=== PATIENT | female | born 1980 | race Caucasian/White ===

== ENCOUNTER 2018-02-25 06:53 | Day surgery (SDC) | payer MEDICAID ==
[2018-02-18 14:00] LABS: BASOPHILS # (AUTO) 0.1 X10'3 (0-0.2); BASOPHILS % (AUTO) 0.3 % (0-1); EOSINOPHILS # (AUTO) 0.2 X10'3 (0-0.9); EOSINOPHILS % (AUTO) 1.3 % (0-6); LYMPHOCYTES # (AUTO) 2.3 X10'3 (1.1-4.8); LYMPHOCYTES % (AUTO) 14.1 % (21-51); MEAN CORPUSCULAR HEMOGLOBIN 34.4 PG (27.0-31.0); MEAN CORPUSCULAR HGB CONC 33.7 % (33.0-36.5); MEAN CORPUSCULAR VOLUME 102.1 FL (78-98); MEAN PLATELET VOLUME 7.7 FL (7.4-10.4); MONOCYTES # (AUTO) 0.7 X10'3 (0-0.9); MONOCYTES % (AUTO) 4.3 % (2-12); PRE OP HEMATOCRIT 39.8 % (35.0-45.0); PRE OP HEMOGLOBIN 13.4 g/dL (12.0-16.0); PRE OP PLATELET COUNT 289 X10'3 (140-440); RED CELL DISTRIBUTION WIDTH 13.2 % (11.5-14.5)
[2018-02-18 14:18] LABS: ALBUMIN 3.7 G/DL (3.4-5.0); ALKALINE PHOSPHATASE 58 IU/L (46-116); BLOOD UREA NITROGEN 12 MG/DL (7-18); BUN/CREATININE RATIO 14.3 (6.6-38.0); CALCIUM 8.4 MG/DL (8.5-10.1); CHLORIDE 105 MMOL/L (99-107); CREATININE 0.84 MG/DL (0.40-0.90); PRE OP ALT 18 U/L (30-65); PRE OP ANION GAP 8 (8-16); PRE OP AST 12 U/L (10-37); PRE OP BILIRUB, TOTAL 0.3 MG/DL (0.0-1.0); PRE OP GLUCOSE 95 MG/DL (70-104); PRE OP POTASSIUM 3.4 MMOL/L (3.4-5.1); PRE OP SODIUM 143 MMOL/L (135-145); TOTAL CARBON DIOXIDE 29.7 MMOL/L (24-32); TOTAL PROTEIN 7.3 G/DL (6.4-8.2); eGFR 77 ML/MIN
[2018-02-18 14:48] LABS: HCG SERUM QL NEGATIVE
[~2018-02-25] VITALS: Ht 170.2 cm; Wt 68.9 kg
[~2018-02-25 06:53] MED LIST: BUPIVAcaine/PF 2.5mg/ml (0.25%) 10ml vial ONE; METH2.5T55 PO; albuterol 2.5 MG/3 ML nebule NEB ONE; cefazolin/dext.iso 2gm/100 ML IV ONE; diazepam 5mg tablet PO PRN; epiNEPHrine 1 mg/ml inj ONE; famotidine 20mg tablet PO ONE; ringers solution, lacted 1,000 ML IV SCH
[2018-02-25 07:15] VITALS: BP 110/77
[2018-02-25 08:57] LABS: BASOPHILS % (AUTO) 0.3 % (0-1); EOSINOPHILS # (AUTO) 0.1 X10'3 (0-0.9); EOSINOPHILS % (AUTO) 1.2 % (0-6); HEMOGLOBIN 13.2 g/dl (12.0-16.0); LYMPHOCYTES # (AUTO) 2.2 X10'3 (1.1-4.8); LYMPHOCYTES % (AUTO) 26.3 % (21-51); MEAN CORPUSCULAR HEMOGLOBIN 34.2 PG (27.0-31.0); MEAN CORPUSCULAR HGB CONC 33.1 % (33.0-36.5); MEAN CORPUSCULAR VOLUME 103.3 FL (78-98); MEAN PLATELET VOLUME 7.7 FL (7.4-10.4); MONOCYTES # (AUTO) 0.7 X10'3 (0-0.9); MONOCYTES % (AUTO) 8.1 % (2-12); NEUTROPHILS # (AUTO) 5.4 X10'3 (1.8-7.7); NEUTROPHILS % (AUTO) 64.1 % (42-75); PLATELET COUNT 278 X10'3 (140-440); RED BLOOD COUNT 3.87 X10'6 (4.20-5.60); RED CELL DISTRIBUTION WIDTH 13.4 % (11.5-14.5); WHITE BLOOD COUNT 8.5 X10'3 (4.5-11.0)
[2018-02-25] MEDS ORDERED: glycopyrrolate 0.2mg/ml inj ONE (09:07)
[2018-02-25] MEDS ORDERED: dexamethasone sod phosphate 10mg/ml inj ONE (09:07)
[2018-02-25] MEDS ORDERED: sevoflurane 250ml liquid IH ONE (09:07)
[2018-02-25] MEDS ORDERED: neostigmine methylsulfate 1 MG/ML 10ml vial ONE (09:07)
[2018-02-25] MEDS ORDERED: rocuronium 10mg/ml inj IV ONE (09:07)
[2018-02-25] MEDS ORDERED: midazolam 2 mg/2 ml injection ONE (09:13)
[2018-02-25] MEDS ORDERED: fentaNYL/PF 50MCG/1 ML 2ML syringe ONE (09:13)
[2018-02-25] MEDS ORDERED: ondansetron/PF 4mg/2ml inj ONE (09:25)
[2018-02-25] MEDS ORDERED: ketorolac trometh. 30mg/ml inj. ONE (09:25)
[2018-02-25] MEDS ORDERED: LIDOcaine 1%/PF 5ML 10 MG/ML VIAL ONE (09:26)
[2018-02-25] MEDS ORDERED: propofol inj 20 ML IV ONE (09:26)
[2018-02-25 10:00] VITALS: BP 116/72
[2018-02-25 10:10] VITALS: BP 115/82
[2018-02-25 10:20] VITALS: BP 108/73
== END 2018-02-25 10:30 | disposition home or self-care (01) ==
LOC: PAS 06:53
PROVIDERS: ATTEND Obstetrics & Gynecology
DX: Z30.2 Encounter for sterilization (principal); N73.6 Female pelvic peritoneal adhesions (postinfective); F17.210 Nicotine dependence, cigarettes, uncomplicated; L40.8 Other psoriasis; F15.21 Other stimulant dependence, in remission; Z90.89 Acquired absence of other organs; Z79.899 Other long term (current) drug therapy; Z98.890 Other specified postprocedural states
CPT/HCPCS: 36415; 58670; 80053; 84703; 85025; 93005; A6258; A6402; J0171; J0690; J1885; J2001; J2250; J2405; J2704; J3010; J3490; J7120; A7000; J1100; J2710